=== PATIENT | female | born 2005 | race Caucasian/White ===

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

== ENCOUNTER 2023-05-10 17:57 | Emergency (ER) | payer OTHER ==
[~2023-05-10] VITALS: Ht 157.5 cm; Wt 72.7 kg
[2023-05-10 19:10] VITALS: BP 129/67; PULSE 81; RESP 16; TEMP 98.3
== END 2023-05-10 20:05 | disposition home or self-care (01) ==
LOC: EMS 17:59
DX: S00.03XA Contusion of scalp, initial encounter (principal); S70.311A Abrasion, right thigh, initial encounter; S40.811A Abrasion of right upper arm, initial encounter; G43.909 Migraine, unspecified, not intractable, without status migrainosus; W19.XXXA Unspecified fall, initial encounter; Y93.89 Activity, other specified; Y92.89 Other specified places as the place of occurrence of the external cause; Y99.8 Other external cause status
CPT/HCPCS: 99282; Z7502

== ENCOUNTER 2024-02-03 10:51 | Emergency (ER) | payer OTHER ==
[~2024-02-03] VITALS: Ht 157.5 cm; Wt 74.5 kg
[2024-02-03 12:58] LABS: BASOPHILS % (AUTO) 0.3 % (0.0-2.0); EOSINOPHILS % (AUTO) 1.4 % (1.0-6.0); HEMATOCRIT 39.2 % (36-46); HEMOGLOBIN 13.1 g/dL (12.0-16.0); LYMPHOCYTES # (AUTO) 1.1 K/uL (1.0-4.8); LYMPHOCYTES % (AUTO) 27.1 % (22.0-44.0); MEAN CORPUSCULAR HEMOGLOBIN 29.2 pg (26.0-34.0); MEAN CORPUSCULAR HGB CONC 33.5 G/dL (31.0-37.0); MEAN CORPUSCULAR VOLUME 87 fL (80-100); MONOCYTES # (AUTO) 0.4 K/uL (0.1-1.0); MONOCYTES % (AUTO) 11.2 % (2.0-9.0); NEUTROPHILS # (AUTO) 2.3 K/uL (1.8-7.7); PLATELET COUNT (AUTO) 227 K/uL (150-450); RED CELL DISTRIBUTION WIDTH 13.8 % (11.5-14.5); WHITE BLOOD COUNT (AUTO) 3.9 K/uL (4.5-11.0)
[2024-02-03 13:35] LABS: ANION GAP 8 mmol/L (8-16); CALCIUM, TOTAL 8.4 mg/dL (8.8-10.5); CARBON DIOXIDE 28 mmol/L (22-29); CHLORIDE 104 mmol/L (98-107); CREATININE 0.74 mg/dL (0.60-1.30); GLOMERULAR FILTR. RATE CALC > 60 mL/min (>60); GLUCOSE,RANDOM 76 mg/dL (70-110); POTASSIUM 4.1 mmol/L (3.5-5.1); SODIUM SERUM 140 mmol/L (136-145); UREA NITROGEN, BLOOD 13 mg/dL (7-18)
[2024-02-03 13:42] LABS: INFLUENZA TYPE A NEGATIVE FOR TYPE A (NEGATIVE); INFLUENZA TYPE B NEGATIVE FOR TYPE B (NEGATIVE)
[2024-02-03] MEDS ORDERED: ONDA-104 PO (14:13)
[2024-02-03 14:38] LABS: ALANINE AMINOTRANSFERASE 19 U/L (12-78); ALBUMIN 3.7 g/dL (3.4-5.0); ALKALINE PHOSPHATASE 61 U/L (46-116); ASPARTATE AMINOTRANSFERASE 12 U/L (15-37); BILIRUBIN,TOTAL 0.2 mg/dL (0.1-1.0); LIPASE 27 U/L (16-77); TOTAL PROTEIN, SERUM 7.5 g/dL (6.4-8.2)
[2024-02-03] MEDS: ONDANSETRON 4 MG TABLET PO ONE (14:47)
[2024-02-03] MEDS: FAMOTIDINE 20 MG TABLET PO ONE (14:47)
[2024-02-03] MEDS: MAG HYDROX/ALUMINUM HYD/SIMETH 30 ML SUSPENSION UDCUP PO ONE (14:47)
[2024-02-03 14:49] VITALS: BP 116/79; PULSE 83; RESP 18; TEMP 98.7; O2SAT 98
== END 2024-02-03 15:10 | disposition home or self-care (01) ==
LOC: EMS 10:51
DX: K52.9 Noninfective gastroenteritis and colitis, unspecified (principal)
CPT/HCPCS: 99284; 80048; 80076; 83690; 84703; 85025; 87804; 36415; Q0162

== ENCOUNTER → 2024-04-15 | Emergency (ER) | payer OTHER ==
[~2024-04-15] VITALS: Ht 157.5 cm; Wt 76.0 kg
[~2024-04-15] MED LIST changes: -ACET-2080 PO; -AMOX250C4 PO; +BENZ-227 PO; +CEPH-558 PO; -DOXY-354 PO; -DOXY50 PO; +GUAIFDM PO; -IBUP-1554 PO; -PENI500T2 PO
[2024-04-15 11:38] VITALS: TEMP 98.4
[2024-04-15 13:06] VITALS: BP 118/91; PULSE 89; RESP 20; O2SAT 98
== END | disposition home or self-care (01) ==
LOC: EMS 11:31
DX: J18.9 Pneumonia, unspecified organism (principal); J06.9 Acute upper respiratory infection, unspecified
CPT/HCPCS: 99283; Z7502

== ENCOUNTER 2024-06-26 14:15 | Emergency (ER) | payer OTHER ==
[~2024-06-26] VITALS: Ht 157.5 cm; Wt 68.2 kg
[2024-06-26 14:22] VITALS: TEMP 98.8
[2024-06-26 14:31] LABS: COVID AG,FIA SOURCE NASAL SWAB
[2024-06-26 14:56] LABS: RAPID GROUP A STREP NEGATIVE (NEGATIVE)
[2024-06-26 15:03] LABS: INFLUENZA TYPE A NEGATIVE FOR TYPE A (NEGATIVE); INFLUENZA TYPE B NEGATIVE FOR TYPE B (NEGATIVE); SARS-COV2 (COVID) ANTIGEN,FIA Negative (Negative)
[2024-06-26 15:15] VITALS: BP 118/75; PULSE 84; RESP 18; O2SAT 99
[2024-06-26] MEDS ORDERED: AMOX250C4 PO (15:23)
== END 2024-06-26 15:30 | disposition home or self-care (01) ==
LOC: EMS 14:36
DX: J06.9 Acute upper respiratory infection, unspecified (principal); Z20.822 Contact with and (suspected) exposure to COVID-19
CPT/HCPCS: 87430; 87804; 99283

== ENCOUNTER 2024-09-27 17:01 | Emergency (ER) | payer OTHER ==
[~2024-09-27] VITALS: Ht 157.5 cm; Wt 78.2 kg
[~2024-09-27 17:01] MED LIST changes: +AMOX250C4 PO
[2024-09-27 17:26] LABS: PLATELET COUNT (AUTO) 308 K/uL (150-450); RED BLOOD CELL COUNT(AUTO) 4.54 MIL/uL (4.00-5.20); RED CELL DISTRIBUTION WIDTH 14.0 % (11.5-14.5); WHITE BLOOD COUNT (AUTO) 6.9 K/uL (4.5-11.0)
[2024-09-27 17:33] LABS: CALCIUM, TOTAL 9.3 mg/dL (8.8-10.5); CREATININE 0.80 mg/dL (0.60-1.30); GLOMERULAR FILTR. RATE CALC > 60 mL/min (>60); GLUCOSE,RANDOM 105 mg/dL (70-110); SODIUM SERUM 140 mmol/L (136-145); UREA NITROGEN, BLOOD 13 mg/dL (7-18)
[2024-09-27 17:45] LABS: HCG,QUANTITATIVE < 1 mIU/mL (0-6)
[2024-09-27 19:16] VITALS: BP 126/69; PULSE 74; RESP 18; TEMP 98.4; O2SAT 99
[2024-09-27] MEDS: ONDANSETRON HCL 4 MG/2 ML VIAL IVP ONE (20:15)
[2024-09-27] MEDS: KETOROLAC TROMETHAMINE 30 MG/ML VIAL IVP ONE (20:15)
[2024-09-27] MEDS: SODIUM CHLORIDE 0.9% 1,000 ML IV ONE (20:15)
== END 2024-09-27 20:20 | disposition left against medical advice (07) ==
LOC: EMS 17:01
DX: R10.31 Right lower quadrant pain (principal); R10.32 Left lower quadrant pain; G43.909 Migraine, unspecified, not intractable, without status migrainosus; N89.8 Other specified noninflammatory disorders of vagina; Z79.899 Other long term (current) drug therapy
CPT/HCPCS: 80048; 83690; 84702; 85025; 99283; J1885; J2405; J7030

== ENCOUNTER 2025-02-05 15:04 | Emergency (ER) | payer OTHER ==
[~2025-02-05] VITALS: Ht 157.5 cm; Wt 76.8 kg
[2025-02-05 15:07] VITALS: TEMP 99.3
[2025-02-05] MEDS ORDERED: IBUP-1492 PO (16:17)
[2025-02-05] MEDS ORDERED: ACET-3385 PO (16:17)
[2025-02-05] MEDS: PENICILLIN G BENZATHINE LA 1,200,000 UNITS/2 ML SYRINGE IM ONE (16:34)
[2025-02-05] MEDS: KETOROLAC TROMETHAMINE 30 MG/ML VIAL IM ONE (16:35)
[2025-02-05 16:50] VITALS: BP 131/76; PULSE 89; RESP 18; O2SAT 99
[2025-02-06] MEDS ORDERED: ACYC-317 PO (20:19)
== END 2025-02-05 16:48 | disposition home or self-care (01) ==
LOC: EMS 15:04
DX: J02.0 Streptococcal pharyngitis (principal); R50.9 Fever, unspecified; G43.909 Migraine, unspecified, not intractable, without status migrainosus
CPT/HCPCS: 99284; 96372; J0561; J1885

== ENCOUNTER 2025-02-06 17:22 | Emergency (ER) | payer OTHER ==
[~2025-02-06] VITALS: Ht 157.5 cm; Wt 76.8 kg
[~2025-02-06 17:22] MED LIST changes: +ACET-3385 PO; -AMOX250C4 PO; -BENZ-227 PO; -CEPH-558 PO; -GUAIFDM PO; +IBUP-1492 PO; -ONDA-104 PO
[2025-02-06 17:40] VITALS: TEMP 99
[2025-02-06 20:00] VITALS: BP 117/88; PULSE 88; RESP 18; O2SAT 98
[2025-02-06] MEDS ORDERED: ACYC-317 PO (20:19)
== END 2025-02-06 20:34 | disposition home or self-care (01) ==
LOC: EMS 17:22
DX: J02.0 Streptococcal pharyngitis (principal); B00.2 Herpesviral gingivostomatitis and pharyngotonsillitis; G43.909 Migraine, unspecified, not intractable, without status migrainosus; Z79.899 Other long term (current) drug therapy
CPT/HCPCS: 99283; Z7502

== ENCOUNTER 2025-02-08 16:08 | Emergency (ER) | payer OTHER ==
[~2025-02-08] VITALS: Ht 157.5 cm; Wt 76.8 kg
[~2025-02-08 16:08] MED LIST changes: +ACYC-317 PO
[2025-02-08 18:10] LABS: PLATELET COUNT (AUTO) 247 K/uL (150-450); RED BLOOD CELL COUNT(AUTO) 4.36 MIL/uL (4.00-5.20); RED CELL DISTRIBUTION WIDTH 13.3 % (11.5-14.5); WHITE BLOOD COUNT (AUTO) 5.3 K/uL (4.5-11.0)
[2025-02-08 18:21] LABS: CALCIUM, TOTAL 9.0 mg/dL (8.8-10.5); CREATININE 0.66 mg/dL (0.60-1.30); GLOMERULAR FILTR. RATE CALC > 60 mL/min (>60); GLUCOSE,RANDOM 81 mg/dL (70-110); SODIUM SERUM 139 mmol/L (136-145); UREA NITROGEN, BLOOD 9 mg/dL (7-18)
[2025-02-08] MEDS: ACETAMINOPHEN/CODEINE 300-15 MG TABLET PO ONE (19:44)
[2025-02-08] MEDS: SODIUM CHLORIDE 0.9% 1,000 ML IV ONE (19:46)
[2025-02-08] MEDS ORDERED: ACET-3560 PO (21:06)
[2025-02-08] MEDS ORDERED: DOCO2CRE TP (21:06)
[2025-02-08 21:13] VITALS: BP 123/67; PULSE 87; RESP 18; TEMP 98.5; O2SAT 98
[2025-02-08] MEDS ORDERED: ACET-2080 PO (23:07)
== END 2025-02-08 22:17 | disposition home or self-care (01) ==
LOC: EMS 16:30
DX: B08.4 Enteroviral vesicular stomatitis with exanthem (principal); G43.909 Migraine, unspecified, not intractable, without status migrainosus; Z79.899 Other long term (current) drug therapy
CPT/HCPCS: 99283; 96360; 80048; 85025; 86308; 36415; J7030